=== PATIENT | male | born 1955 | race Caucasian/White ===

== ENCOUNTER 2021-09-17 10:24 | Emergency (ER) | payer OTHER ==
[2021-09-17 10:59] VITALS: RESP 20; TEMP 98.3; BMI 30.4
[2021-09-17 12:09] VITALS: BP 194/104; PULSE 79
== END 2021-09-17 12:21 | disposition home or self-care (01) ==
LOC: FER 10:24
DX: I10 Essential (primary) hypertension (principal)
CPT/HCPCS: 99282-25